=== PATIENT | female | born 1975 | race African-American/Black ===

== ENCOUNTER → 2025-01-17 | Day surgery (SDC) | payer BC ==
[2025-01-10 15:57] LABS: BASOPHILS % 0.5 % (0.0-1.0); EOSINOPHILS % 1.8 % (0.0-6.0); LYMPHOCYTES % 34.4 % (18.0-39.1); MONOCYTES % 14.4 % (4.4-11.3); NEUTROPHILS % 48.6 % (38.7-80.0); RED CELL DISTRIBUTION WIDTH 14.8 % (11.7-14.4)
[2025-01-10 18:39] LABS: EOSINOPHILS % (MANUAL) 2 % (0-7)
[2025-01-10 18:40] LABS: LYMPHOCYTES % (MANUAL) 34 % (19-48); MONOCYTES % (MANUAL) 12 % (3.4-9.0); NEUTROPHILS % (MANUAL) 52 % (40-74); PLATELET ESTIMATE SLIGHTLY INCREASED; PLATELET MORPHOLOGY COMMENT NORMAL; RBC MORPHOLOGY COMMENT NORMAL
[~2025-01-17] MED LIST: BENICAR20 MG PO; CLOPIDOGREL75 MG PO; COREG12.5 MG PO; FEROSUL325 MG PO; GLYCOPYRROLATE INJ 0.2 MG/ML VIAL ONE; K-DUR10 MEQ PO; KETAMINE 50MG/5ML SYR ONE; LASIX40 MG PO; LIDOCAINE HCL 2% LOCAL INJ 5 ML SDV VIAL INJ ONE; MIDAZOLAM HCL 2 MG/2 ML VIAL ONE; PROPOFOL IV EMULSION 10 MG/ML 20 ML VIAL ONE; ZETIA10 MG PO
[2025-01-17] MEDS: LACTATED RINGER'S 1,000 ML ONE (06:45)
[2025-01-17 08:10] VITALS: BP 149/70; PULSE 75; RESP 14; TEMP 98.1; O2SAT 98
== END | disposition home or self-care (01) ==
LOC: ENDO 05:24
PROVIDERS: ATTEND Surgery
DX: K21.9 Gastro-esophageal reflux disease without esophagitis (principal); K29.50 Unspecified chronic gastritis without bleeding; K20.90 Esophagitis, unspecified without bleeding; K44.9 Diaphragmatic hernia without obstruction or gangrene; E66.01 Morbid (severe) obesity due to excess calories; G47.33 Obstructive sleep apnea (adult) (pediatric); I10 Essential (primary) hypertension; E78.5 Hyperlipidemia, unspecified; M19.90 Unspecified osteoarthritis, unspecified site; Z01.810 Encounter for preprocedural cardiovascular examination; Z01.812 Encounter for preprocedural laboratory examination; Z79.02 Long term (current) use of antithrombotics/antiplatelets; Z79.899 Other long term (current) drug therapy; Z68.45 Body mass index [BMI] 70 or greater, adult
CPT/HCPCS: 36415; 43235; 81025; 85025; 88305; 93005; J2003; J2250